=== PATIENT | female | born 1980 | race Caucasian/White ===

== ENCOUNTER 2019-08-06 01:59 | Emergency (ER) | payer OTHER ==
[2019-08-06 02:03] VITALS: TEMP 98.4
[2019-08-06 02:33] LABS: BASO % 0.2 % (0.0-2.0); GRAN # 4.9 (1.4-6.5); GRAN % 58.8 % (42.2-75.2); LYMPH # 2.8 (1.2-3.4); LYMPH % 33.5 % (20.0-51.0); MEAN CELL VOLUME 67 fl (80.0-100.0); MEAN CORPUSCULAR HGB CONC 28 g/dl (33.0-37.0); MONO # 0.6 (0.1-0.6); MONO % 7.3 % (1.7-9.3); PLATELET COUNT 317 K/mm3 (130-400); RED BLOOD COUNT 4.66 M/mm3 (4.10-5.30); REDCELL DISTRIBUTION WIDTH-CV 20.7 % (11.5-14.5)
[2019-08-06 02:34] LABS: HEMATOCRIT 31.3 % (37.0-47.0); HEMOGLOBIN 8.9 g/dl (12.5-16.0); MEAN CORPUSCULAR HEMOGLOBIN 19 pg (27.0-31.0)
[2019-08-06 02:38] LABS: INR 1.1 (0.8-3.0); PROTHROMBIN TIME 12.1 SECONDS (9.7-12.8)
[2019-08-06 02:48] LABS: ALANINE AMINOTRANSFERASE 23 U/L (4-34); ALBUMIN 4.2 gm/dL (3.5-5.0); ALKALINE PHOSPHATASE 93 U/L (50-136); ANION GAP 8 mmol/L (7-16); AST,SGOT 29 U/L (15-37); BILIRUBIN,TOTAL 0.4 mg/dL (0.0-1.0); BLOOD UREA NITROGEN 12 mg/dL (7-17); CALCIUM 8.7 mg/dL (8.4-10.2); CARBON DIOXIDE 27 mmol/L (22-30); CHLORIDE 103 mmol/L (98-107); CREATININE, serum 0.84 (0.52-1.25); GLUCOSE 102 mg/dL (74-106); POTASSIUM 3.8 mmol/L (3.4-5.0); SODIUM 138 mmol/L (137-145); TOTAL PROTEIN 7.7 gm/dL (6.4-8.2)
[2019-08-06 03:01] LABS: TROPONIN-I < 0.012 ng/mL (0.000-0.035)
[2019-08-06 04:59] VITALS: BP 107/70; PULSE 70
== END 2019-08-06 05:20 | disposition home or self-care (01) ==
LOC: COL.ER 01:59
PROVIDERS: Emergency Medicine
DX: R00.2 Palpitations (principal); F17.210 Nicotine dependence, cigarettes, uncomplicated; Z90.49 Acquired absence of other specified parts of digestive tract